=== PATIENT | male | born 1960 | race Caucasian/White ===

== ENCOUNTER 2018-01-12 06:30 | Day surgery (SDC) | payer OTHER ==
[2018-01-12 07:32] VITALS: TEMP 97
--- NOTE | 2018-01-12 08:45 | CP.SDSHP ---
Same Day Surgery H & P - History Proposed Procedure: colonoscopy Pre-Op Diagnosis: rectal bleeding. constipation - Previous Medical/Surgical History Cardiac: Hypertension Endocrine/Metabolic: Diabetes, Obesity Misc: Other (gastritis) Previous Surgical History: denies - Allergies Allergies: Allergies No Known Allergies Allergy (Verified 01/12/18 06:57) - Physical Exam Vital Signs: Vital Signs 01/12/18 07:19 Temperature 97 F L Pulse Rate 80 Respiratory 20 Rate Blood Pressure 168/90 H O2 Sat by Pulse 99 Oximetry Mental Status: Alert & Oriented x3 Neuro: WNL Heart: WNL Lungs: WNL GI: WNL - Impression Impression: rectal bleeding. constipation Pt. Evaluated Today:Candidate for Anesthesia & Procedure: Yes - Date & Time Date: 01/12/18 Time: 08:45 Short Stay Discharge - Short Stay Discharge Admitting Diagnosis/Reason for Visit: GASTROINTESTINAL HEMORRHAGE, CHANGE IN BOWEL HABIT Disposition: HOME/ ROUTINE
[2018-01-12] MEDS ORDERED: Propofol 10 mg/ml Inj (20 ML) ONE (08:48)
[2018-01-12] MEDS ORDERED: Lidocaine Hydrochloride 5 ML INJ ONE (09:23)
[2018-01-12 10:22] VITALS: O2SAT 99
[2018-01-12 10:24] VITALS: RESP 12
[2018-01-12 10:28] VITALS: BP 168/90; PULSE 78
== END 2018-01-12 10:15 | disposition home or self-care (01) ==
LOC: C.ENDO 06:30
PROVIDERS: ATTEND Internal Medicine Gastroenterology
DX: K92.2 Gastrointestinal hemorrhage, unspecified (principal); R19.4 Change in bowel habit; K59.00 Constipation, unspecified; D12.5 Benign neoplasm of sigmoid colon; K64.8 Other hemorrhoids
CPT/HCPCS: 45380; 82948; 88305; J2704